=== PATIENT | male | born 1985 | race Hispanic/Latino ===

== ENCOUNTER 2017-08-18 14:39 | Emergency (ER) | payer SELFPAY ==
[2017-08-18 14:47] VITALS: BP 126/74
[2017-08-18] MEDS ORDERED: MARCAINE 0.25% INFILTRATI ONE ×2 (17:13→18:12)
[2017-08-18] MEDS ORDERED: NORCO 7.5/325 PO ONE (17:13)
--- NOTE | 2017-08-18 17:14 | Emergency Department Report ---
Blank Doc - Documentation Documentation: She is a 32-year-old male who has a piece of glass embedded in the left fifth digit. Patient was working with a broken window glass in finger. This is obvious on x-ray. Patient will be moved to a treatment room to have his finger numbed and have the glass removed.
--- NOTE | 2017-08-18 17:21 | XRay Report ---
FINAL REPORT EXAM: XR HAND 3+V RT HISTORY: LAC--- POSS FB/ GLASS IN right HAND TECHNIQUE: 3 views of the right hand PRIORS: None. FINDINGS: A rectangular opacity is most compatible with foreign body in the soft tissues adjacent to the dorsal aspect of the little finger proximal phalanx. Measurements are approximately 4 x 16 mm. Adjacent bone is intact. No evidence of acute fracture or dislocation. IMPRESSION: No acute skeletal pathology Soft tissue foreign body in region of proximal little finger
[2017-08-18] MEDS ORDERED: BOOSTRIX IM ONE (18:29)
--- NOTE | 2017-08-18 18:44 | Emergency Department Report ---
- General Chief complaint: Wound/Laceration Stated complaint: LACERATED HAND Time Seen by Provider: 08/18/17 17:10 Source: patient, family Mode of arrival: Ambulatory Limitations: No Limitations - History of Present Illness Initial comments: PT is a 32-year-old male who has a piece of glass embedded in the left fifth digit. Patient was working with a broken window glass in finger. Patient says he cut his hand. He said he cut his hand on glass and glass is still in his hand. Patient said it was bleeding at first, but is not bleeding now. He said he almost passed out after cutting his hand. On triage note states this patient passed out. The patient said he almost passed out. It also said that patient said it may have. I have may hit my head. When I pass out, but patient denies any head, and denies any headache. Pain to right fifth finger is 4 out of 10 without movement and 10/10 with movement and touch. Tetanus vaccine is not up-to-date. Denies any numbness or tingling. Denies any radiation of pain to hand or elbows. Injury is localized to his right fifth finger. No medication taken prior to coming to the hospital. MD complaint: laceration, foreign body -: This afternoon Location: RUE (right fifth finger) Severity: severe Severity scale (0 -10): 4 (with movement and touch) Quality: aching, sharp, constant Consistency: constant Improves with: rest Worsens with: palpation, movement Context: other (foreign body in finger, accidental injury) Associated symptoms: athralgias Treatments Prior to Arrival: bandages - Related Data Previous Rx's Medication Instructions Recorded Last Taken Type Acetaminophen/Codeine [Tylenol 1 tab PO Q6H PRN #12 tab 08/18/17 Unknown Rx /Codeine # 3 tab] Cephalexin [Keflex] 500 mg PO Q8HR 7 Days #21 cap 08/18/17 Unknown Rx Ibuprofen [Motrin] 600 mg PO Q8H PRN #12 tablet 08/18/17 Unknown Rx Allergies Allergy/AdvReac Type Severity Reaction Status Date / Time No Known Allergies Allergy Unverified 08/18/17 14:42 Abscess Boil HPI - HPI Chief Complaint: Wound/Laceration Stated Complaint: LACERATED HAND Time Seen by Provider: 08/18/17 17:10 Home Medications: Previous Rx's Medication Instructions Recorded Last Taken Type Acetaminophen/Codeine [Tylenol 1 tab PO Q6H PRN #12 tab 08/18/17 Unknown Rx /Codeine # 3 tab] Cephalexin [Keflex] 500 mg PO Q8HR 7 Days #21 cap 08/18/17 Unknown Rx Ibuprofen [Motrin] 600 mg PO Q8H PRN #12 tablet 08/18/17 Unknown Rx Allergies/Adverse Reactions: Allergies Allergy/AdvReac Type Severity Reaction Status Date / Time No Known Allergies Allergy Unverified 08/18/17 14:42 ED Review of Systems ROS: Stated complaint: LACERATED HAND Other details as noted in HPI Comment: All other systems reviewed and negative Constitutional: no symptoms reported Eyes: denies: eye pain, vision change Respiratory: denies: cough, shortness of breath, wheezing Cardiovascular: denies: chest pain, palpitations, edema, syncope Gastrointestinal: denies: nausea, vomiting Musculoskeletal: denies: back pain, joint swelling, arthralgia Skin: other (foreign body and fifth digits with pain and also cuts to fifth digit.). denies: change in color, change in hair/nails Neurological: denies: headache, weakness, numbness, paresthesias, confusion, abnormal gait, vertigo Psychiatric: anxiety ED Past Medical Hx - Past Medical History Previous Medical History?: Yes Additional medical history: HEART ARRHYTHMIA - Surgical History Past Surgical History?: Yes Additional Surgical History: TENDON SURGERY - Family History Family history: hypertension - Social History Smoking Status: Never Smoker Substance Use Type: Marijuana Other Social History: and lives at family - Medications Home Medications: Home Medications Medication Instructions Recorded Confirmed Last Taken Type Acetaminophen/Codeine [Tylenol 1 tab PO Q6H PRN #12 tab 08/18/17 Unknown Rx /Codeine # 3 tab] Cephalexin [Keflex] 500 mg PO Q8HR 7 Days #21 cap 08/18/17 Unknown Rx Ibuprofen [Motrin] 600 mg PO Q8H PRN #12 tablet 08/18/17 Unknown Rx ED Physical Exam - General Limitations: No Limitations General appearance: alert, in no apparent distress - Head Head exam: Present: atraumatic, normocephalic, normal inspection, other (normal exam) - Eye Eye exam: Present: normal appearance, PERRL, EOMI. Absent: nystagmus, periorbital swelling, periorbital tenderness Pupils: Present: normal accommodation - ENT ENT exam: Present: normal exam - Neck Neck exam: Present: normal inspection, full ROM, other (no C-spine tenderness). Absent: tenderness, lymphadenopathy - Respiratory Respiratory exam: Present: normal lung sounds bilaterally. Absent: respiratory distress, chest wall tenderness - Cardiovascular Cardiovascular Exam: Present: normal rhythm, bradycardia. Absent: systolic murmur, diastolic murmur - GI/Abdominal GI/Abdominal exam: Present: soft, normal bowel sounds. Absent: distended - Extremities Exam Extremities exam: Present: normal inspection, full ROM, tenderness (tenderness to right fifth digit proximal phalanx), normal capillary refill, joint swelling (swelling to right fifth digit greater proximal phalanx), other (no clubbing, cyanosis or edema. +2 pulses to all extremities. No signs of tendon injury. No neurovascular compromise.). Absent: pedal edema - Back Exam Back exam: Present: normal inspection, full ROM. Absent: tenderness - Neurological Exam Neurological exam: Present: alert, oriented X3, normal gait, reflexes normal, other (no focal neurological deficit). Absent: motor sensory deficit - Psychiatric Psychiatric exam: Present: normal affect, normal mood - Skin Skin exam: Present: warm, dry, intact, normal color, other (patient with cuts to proximal right fifth digit. Tender to palpate.) - Expanded Skin Exam Expanded Type of lesion: Present: laceration (superficial, both sides proximal right fifth digit), foreign body (positive foreign body felt proximally, right fifth digit) Distribution of rash: RUE (right fifth digit) Description of rash: Present: tenderness, swelling ED Course Vital Signs 08/18/17 14:43 Temperature 97.7 F Pulse Rate 58 L Respiratory 18 Rate Blood Pressure 126/74 O2 Sat by Pulse 100 Oximetry - Reevaluation(s) Reevaluation #1: 08/18/17 19:03 Patient was screened by Dr. Garcia Us, and he received [place] 5/325 mg one tablet by mouth in emergency room for pain. Please refer to procedure note for details on digital block, incision to remove foreign body and laceration repair. Patient also receive tetanus 0.5 mL to update tetanus vaccine. - Procedure Description Procedures done: Foreign body removal from right fifth digit of hand: Under sterile procedure, digital block fifth digits finger, right hand. Less than 0.2 cm laceration made on both sides of right hand fifth digit proximal phalanx. 4 mm glass removal from finger. Laceration repair, status post x-ray to confirm that all foreign body was removed. - Laceration /Wound Repair Right Lateral Proximal Finger Wound Location: upper extremity (right inner lateral proximal finger, fifth digit, hand) Wound Length (cm): 0 (less than 0.25) Wound's Depth, Shape: superficial, linear Wound Explored: no foreign body removed Irrigated w/ Saline (ccs): 100 Betadine Prep?: Yes Volume Anesthetic (ccs): 0 (right fifth digit was already anesthetized with digital block and from foreign body removal.) Wound Debrided: moderate Wound Repaired With: sutures Suture Size/Type: 3:0, proline Number of Sutures: 4 Layer Closure?: No Sterile Dressing Applied?: Yes (patient tolerated well. Patient with good color , sensation, movement, and ) Right Proximal Finger Wound Location: upper extremity (right hand, proximal fifth digits outer lateral ) Wound Length (cm): 0 (less than 0.2 cm) Wound's Depth, Shape: superficial, linear Wound Explored: no foreign body removed Irrigated w/ Saline (ccs): 100 Betadine Prep?: Yes Volume Anesthetic (ccs): 0 (acheived from digital block from FB removal) Wound Debrided: moderate Wound Repaired With: sutures Suture Size/Type: 3:0, proline Number of Sutures: 3 Sterile Dressing Applied?: Yes - Nerve Block Consent Obtained: verbal consent Time Out Performed: Yes Local Anesthetic Used: Marcaine 0.25% (bupivacaine) Amount of anesthesia used: 2 Side: right Nerve Blocks: digital (fifth digit, right hand) Procedure Successful: Yes Complications: none Patient Tolerated Procedure: well, no complications ED Medical Decision Making - Radiology Data Radiology results: report reviewed Preprocedure x-ray of right hand shows no acute skeletal pathology. Soft tissue foreign body in region of proximal little finger. Approximately 4 x 16 mm. Adjacent bone is intact. No evidence of fracture, dislocation Postprocedure x-ray after foreign body removal of right fifth finger shows foreign body completely removed via film. - Medical Decision Making ED course: She is status post right fifth proximal phalanx injury with foreign body. Foreign body removed. Please see procedure note for digital block and, removal of foreign body from right fifth proximal pharynx and also laceration repair. Patient received [place] 5/325 one tablet by mouth emergency room for pain prior to procedure and tetanus vaccine 0.5 mL to update tetanus.He was given Keflex 500 mg by mouth in emergency room empirically for infection. Patient without any neurovascular compromise or any signs of tendon injury. He tolerated procedures well and patient discharged home in stable condition with his family. He does not live and [place] and I discussed with him that if he is a [place] work in. He needs to return to urgent care or emergency room in 7- 10 days to have stitches removed or if he goes back to [place]. He needs to go to urgent care clinic or emergency room test stitches removed in 7-10 days, and he voiced understanding. Patient pre-x-ray showed that he has foreign body in his right proximal phalanx and postprocedure x-ray reveals no foreign body. This is communicated to patient. Patient is stable and discharged home. A prescription for Keflex, Motrin and Tylenol 3. Critical care attestation.: If time is entered above; I have spent that time in minutes in the direct care of this critically ill patient, excluding procedure time. ED Disposition Clinical Impression: Foreign body of right little finger, Pain of finger of right hand Laceration of finger of right hand with foreign body Qualifiers: Encounter type: initial encounter Finger: little finger Damage to nail status: without damage Qualified Code(s): S61.226A - Laceration with foreign body of right little finger without damage to nail, initial encounter Disposition: - TO HOME OR SELFCARE Is pt being admited?: No Does the pt Need Aspirin: No Condition: Stable Instructions: Suture Care (ED), Finger Laceration (ED), Soft Tissue Foreign Body (ED), Arthralgia (ED) Additional Instructions: Please keep affected area clean and dry. Take Antibiotic as prescribed Please return to emergency room or urgent care to have stitches removed in 7-10 days. Take Motrin for mild to moderate pain, and Tylenol No. 3 for moderate to severe pain. Please take both medication with food to prevent nausea or irritation to stomach. Please, do not drive or operate heavy machinery while taking Tylenol No. 3 as this medication causes drowsiness Prescriptions: Acetaminophen/Codeine [Tylenol /Codeine # 3 tab] 1 tab PO Q6H PRN #12 tab PRN Reason: moderate to severe pain Cephalexin [Keflex] 500 mg PO Q8HR 7 Days #21 cap Ibuprofen [Motrin] 600 mg PO Q8H PRN #12 tablet PRN Reason: Pain Referrals: PRIMARY CARE,MD [Primary Care Provider] - 3-5 Days return to, urgent care/emergency room in 7-10 days [Other] - 7-10 days Forms: Accompanied Note, Work/School Release Form(ED)
--- NOTE | 2017-08-18 19:27 | XRay Report ---
FINAL REPORT EXAM: XR FINGER(S) 2+V RT HISTORY: xr rightb fifth digit finger s/p FB removal TECHNIQUE: AP view of right hand and 2 views of right little finger. PRIORS: Earlier on same date. FINDINGS: Soft tissue foreign body noted previously in the dorsal aspect of little finger proximal phalanx no longer apparent, with some associated soft tissue edema. No acute fracture, dislocation or obvious osseous destruction. IMPRESSION: 1. Interval removal of soft tissue foreign body noted previously in right little finger. 2. No acute osseous abnormality.
== END 2017-08-18 19:54 | disposition home or self-care (01) ==
LOC: ED 14:39
DX: S61.226A Laceration with foreign body of right little finger without damage to nail, initial encounter (principal); F12.10 Cannabis abuse, uncomplicated; W25.XXXA Contact with sharp glass, initial encounter; Y93.89 Activity, other specified; Y92.89 Other specified places as the place of occurrence of the external cause; Y99.8 Other external cause status
CPT/HCPCS: 90471; 90715; 99283